=== PATIENT | male | born 1995 | race African-American/Black ===

== ENCOUNTER 2022-12-23 13:08 | Emergency (ER) | payer SELFPAY ==
[~2022-12-23] VITALS: Ht 185.4 cm; Wt 109.0 kg
[2022-12-23 13:17] VITALS: PULSE 98; TEMP 98.6; O2SAT 98
[2022-12-23 14:03] VITALS: BP 154/99; RESP 18
== END 2022-12-23 14:06 | disposition home or self-care (01) ==
LOC: ER 13:08
DX: T67.5XXA Heat exhaustion, unspecified, initial encounter (principal); R42 Dizziness and giddiness; I10 Essential (primary) hypertension; X58.XXXA Exposure to other specified factors, initial encounter
CPT/HCPCS: 99281

== ENCOUNTER 2024-10-13 09:32 | Emergency (ER) | payer OTHER ==
[~2024-10-13] VITALS: Ht 185.4 cm; Wt 93.0 kg
[2024-10-13 09:42] VITALS: O2SAT 99
[2024-10-13 10:29] LABS: BASOPHILS % 0.3 % (0.0-2.0); EOSINOPHILS % 0.4 % (0.0-5.0); HEMATOCRIT. 42.3 % (42.0-52.0); HEMOGLOBIN. 14.2 g/dL (14.0-18.0); LYMPHOCYTES % 15.2 % (20.0-50.0); MEAN PLATELET VOLUME 9.7 fl (7.4-10.4); MONOCYTES % 10.2 % (2.0-8.0); NEUTROPHILS % 73.9 % (40.0-76.0); PLATELET 291 x1000/uL (130-400); RED BLOOD CELL COUNT 5.08 mill/uL (4.7-6.1); RED CELL DISTRIBUTION WIDTH 13.7 % (11.6-14.6)
[2024-10-13 10:42] LABS: CREATININE 1.1 mg/dL (0.6-1.3); UREA NITROGEN BLOOD 9 mg/dL (9-23)
[2024-10-13 10:43] LABS: ASPARTATE AMINOTRANSFERASE 31 IU/L (<34)
[2024-10-13 10:44] LABS: BILIRUBIN DIRECT 0.4 mg/dL (<=3.0); BILIRUBIN TOTAL 1.8 mg/dL (0.1-1.0); PROTEIN TOTAL 7.9 g/dL (6.0-8.3)
[2024-10-13 10:46] LABS: T4 FREE 1.37 ng/dL (0.89-1.76)
[2024-10-13 11:00] VITALS: BP 139/92; PULSE 85; RESP 17; TEMP 36.9; O2SAT 99
== END 2024-10-13 11:01 | disposition home or self-care (01) ==
LOC: ER 09:32
DX: R53.1 Weakness (principal); I10 Essential (primary) hypertension; Z79.899 Other long term (current) drug therapy
CPT/HCPCS: 36415; 80048; 80076; 83735; 84439; 84443; 85025; 99283